=== PATIENT | male | born 1985 | race Caucasian/White ===

== ENCOUNTER 2018-03-10 18:08 | Inpatient (IN) ==
--- NOTE | 2018-03-10 18:24 | Emergency Department Note ---
Disposition Clinical Impression: Acute hepatitis, Elevated liver enzymes Disposition: Admitted As Inpatient Condition: Fair General Adult HPI - General Chief complaint: ED Abdominal Pain Stated complaint: Hep A exposure, multiple concerns Time Seen by Provider: 03/10/18 18:20 Source: patient Limitations: no limitations - History of Present Illness Pain Scale: 8 - Related Data Home Medications Medication Instructions Recorded Confirmed No Known Home Drugs 03/10/18 03/10/18 Allergies Allergy/AdvReac Type Severity Reaction Status Date / Time No Known Allergies Allergy Verified 03/10/18 20:23 Past Medical History - Past Medical History Medical history: Reports: no medical history Psychiatric history: Reports: no psych history - Social History Smoking Status: Current every day smoker Smokeless Tobacco Status: Yes Alcohol use: Reports: heavy Drug use: Reports: cocaine, opiates, methamphetamine, prescription drug abuse Physical Exam - General Limitations: no limitations General appearance: alert Course Vital Signs Temperature 97.6 F 03/10/18 18:13 Pulse Rate 85 03/10/18 18:13 Respiratory Rate 20 03/10/18 18:13 Blood Pressure 125/84 03/10/18 18:13 O2 Sat by Pulse Oximetry 100 03/10/18 18:13 Temperature 98.1 F 03/11/18 14:40 Pulse Rate 74 03/11/18 14:40 Respiratory Rate 16 03/11/18 14:40 Blood Pressure 133/83 03/11/18 14:40 O2 Sat by Pulse Oximetry 99 03/11/18 14:40 Oxygen Delivery Oxygen Delivery Room Air Medical Decision Making - Lab Data Result diagrams: 03/11/18 00:21 03/11/18 00:21 Lab Results 03/10/18 03/10/18 03/10/18 Range/Units 18:34 18:34 18:34 WBC 3.7 L (4.3-11.1) K/mcL RBC 5.19 (4.19-5.50) M/mcL Hgb 16.3 (12.9-16.9) g/dL Hct 45.0 (37.5-50.1) % MCV 86.7 (83.0-100.0) fL MCH 31.4 (28.0-33.3) pg MCHC 36.2 H (31.6-35.5) g/dL RDW 12.6 (11.5-14.5) % Plt Count 125 L (140-400) K/mcL MPV 9.7 (9.4-12.4) fL Immature Gran % 0.0 (0-4) % Seg Neutrophils % 27.3 % Lymphocytes % 58.6 % Monocytes % 10.3 % Eosinophils % 1.6 % Basophils % 2.2 % Neutrophils # 1.0 L (1.6-8.9) K/mcL Lymphocytes # 2.2 (0.6-4.6) K/mcL Monocytes # 0.4 (0.0-1.3) K/mcL Eosinophils # 0.1 (0.0-0.6) K/mcL Basophils # 0.1 (0.0-0.2) K/mcL Reactive Lymphocytes Present A (Not Present) Platelet Estimate Normal (Normal) PT (9.4-12.1) Seconds INR Sodium 135 L (136-145) mEq/L Potassium 3.8 (3.5-5.1) mEq/L Chloride 103 (98-107) mEq/L Carbon Dioxide 27 (23-29) mEq/L BUN 6 (6-20) mg/dL Creatinine 0.86 (0.70-1.30) mg/dL Est GFR ( Amer) > 60 (> 60) Est GFR (Non-Af Amer) > 60 (> 60) BUN/Creatinine Ratio 7 (6-26) Glucose 123 H (70-105) mg/dL Calculated Osmolality 279 L (280-300) Calcium 9.1 (8.6-10.3) mg/dL Total Bilirubin 5.2 H (0.3-1.0) mg/dL Direct Bilirubin (0.0-0.2) mg/dL AST 1172 H (13-39) Units/L ALT > 500 H (7-52) Units/L Alkaline Phosphatase 247 H (34-104) Units/L Serum Total Protein 7.1 (6.4-8.9) g/dL Albumin 4.2 (3.5-5.7) g/dL Globulin 2.9 (2.4-3.5) g/dL Albumin/Globulin Ratio 1.4 (1.1-2.2) Urine Color (Yellow) Urine Clarity (Clear) Urine pH (5.0-8.0) pH Units Ur Specific [place] (1.010-1.025) Urine Protein (Neg-Trace) mg/dL Urine Glucose (UA) (Normal) mg/dL Urine Ketones (Negative) mg/dL Urine Blood (Negative) Urine Nitrite (Negative) Urine Bilirubin (Negative) Urine Urobilinogen (Normal) mg/dL Ur Leukocyte Esterase (Negative) Urine Microscopic RBC (0-3) per hpf Urine Microscopic WBC (0-3) per hpf Ur Squamous Epith Cells (None-Few) per lpf Urine Bacteria (None-Few) per hpf Hyaline Casts (None-Few) per lpf Acetaminophen (10-20) mcg/mL Hepatitis A IgM Ab Reactive H (Nonreactive) Hep Bs Antigen Nonreactive (Nonreactive) Hep B Core IgM Ab Nonreactive (Nonreactive) Hepatitis C Ab Screen Nonreactive (Nonreactive) 03/10/18 03/10/18 03/10/18 Range/Units 18:54 20:19 20:19 WBC (4.3-11.1) K/mcL RBC (4.19-5.50) M/mcL Hgb (12.9-16.9) g/dL Hct (37.5-50.1) % MCV (83.0-100.0) fL MCH (28.0-33.3) pg MCHC (31.6-35.5) g/dL RDW (11.5-14.5) % Plt Count (140-400) K/mcL MPV (9.4-12.4) fL Immature Gran % (0-4) % Seg Neutrophils % % Lymphocytes % % Monocytes % % Eosinophils % % Basophils % % Neutrophils # (1.6-8.9) K/mcL Lymphocytes # (0.6-4.6) K/mcL Monocytes # (0.0-1.3) K/mcL Eosinophils # (0.0-0.6) K/mcL Basophils # (0.0-0.2) K/mcL Reactive Lymphocytes (Not Present) Platelet Estimate (Normal) PT 12.3 H (9.4-12.1) Seconds INR 1.1 Sodium (136-145) mEq/L Potassium (3.5-5.1) mEq/L Chloride (98-107) mEq/L Carbon Dioxide (23-29) mEq/L BUN (6-20) mg/dL Creatinine (0.70-1.30) mg/dL Est GFR ( Amer) (> 60) Est GFR (Non-Af Amer) (> 60) BUN/Creatinine Ratio (6-26) Glucose (70-105) mg/dL Calculated Osmolality (280-300) Calcium (8.6-10.3) mg/dL Total Bilirubin (0.3-1.0) mg/dL Direct Bilirubin 3.9 H (0.0-0.2) mg/dL AST (13-39) Units/L ALT (7-52) Units/L Alkaline Phosphatase (34-104) Units/L Serum Total Protein (6.4-8.9) g/dL Albumin (3.5-5.7) g/dL Globulin (2.4-3.5) g/dL Albumin/Globulin Ratio (1.1-2.2) Urine Color [place] A (Yellow) Urine Clarity Clear (Clear) Urine pH 6.0 (5.0-8.0) pH Units Ur Specific [place] 1.022 (1.010-1.025) Urine Protein 30 H (Neg-Trace) mg/dL Urine Glucose (UA) Normal (Normal) mg/dL Urine Ketones 15 H (Negative) mg/dL Urine Blood Negative (Negative) Urine Nitrite Positive A (Negative) Urine Bilirubin Large H (Negative) Urine Urobilinogen 2.0 H (Normal) mg/dL Ur Leukocyte Esterase Small H (Negative) Urine Microscopic RBC 5-15 H (0-3) per hpf Urine Microscopic WBC 0-3 (0-3) per hpf Ur Squamous Epith Cells None Seen (None-Few) per lpf Urine Bacteria None Seen (None-Few) per hpf Hyaline Casts None Seen (None-Few) per lpf Acetaminophen < 10 L (10-20) mcg/mL Hepatitis A IgM Ab (Nonreactive) Hep Bs Antigen (Nonreactive) Hep B Core IgM Ab (Nonreactive) Hepatitis C Ab Screen (Nonreactive) Attestation Statement - Attestation Attestation: I examined this patient and my medical decision-making was reviewed with the Resident Physician. I agree with the documented findings, disposition and treatment plan as described except to the extent set forth below. [id number] time provided Patient states he was possibly exposed to hepatitis A when he snorted methamphetamine with another person who had a known exposure. He states "I feel like I have a kidney infection or something." "I feel like my body is shutting down." Triage note and vital was reviewed by me. No SIRS criteria. Patient appears in no acute distress on exam
--- NOTE | 2018-03-10 18:27 | Emergency Department Note ---
Disposition Clinical Impression: Acute hepatitis, Elevated liver enzymes Disposition: Admitted As Inpatient Condition: Fair Forms: ED Satisfaction Letter, Work/School Release Time of Disposition: 20:30 General Adult HPI - General Chief complaint: ED Abdominal Pain Stated complaint: Hep A exposure, multiple concerns Time Seen by Provider: 03/10/18 18:20 Source: patient Limitations: no limitations Nursing Notes Reviewed: Yes Vital Signs Reviewed: Yes - History of Present Illness HPI Narrative: 32 y/o male presents with concerns that his "kidneys are shutting down." Pt has a hx of snorting meth, last use was 3-4 days ago. Pt also has a 21 year history of ETOH abuse, last drink 2-3 days ago. Pt reports that he used to snort cocaine and did pills. He started feeling bad on wednesday. He states he has felt run down and hurts all over. He has chills, bilateral low back pain, mild abd pain, he was vomiting on wednesday and is now nauseated. He feels like his " whole body is shutting down." He has been taking a lot of ibuprofen and maybe tylenol, although he can't quantify the amount of pills. He also bought [address] to take for the pain, but they did not help. He has been peeing dark blood all day so he became concerned and came in. He is worried that he has hep A because one of his friends he snorted meth with at some point during the last month had it. He denies fevers, CP, SOB, CARL, dizziness, syncope, vision changes, rashes, numbness or tingling. Pain Scale: 8 - Related Data Home Medications Medication Instructions Recorded Confirmed No Known Home Drugs 03/10/18 03/10/18 Allergies Allergy/AdvReac Type Severity Reaction Status Date / Time No Known Allergies Allergy Verified 03/10/18 20:23 All systems ED: reviewed and negative except as stated. Past Medical History - Past Medical History Attestation: Yes The following information was validated with the patient. Source: patient Medical history: Reports: no medical history Psychiatric history: Reports: no psych history - Social History Smoking Status: Current every day smoker Smokeless Tobacco Status: Yes Alcohol use: Reports: heavy Drug use: Reports: cocaine, opiates, methamphetamine, prescription drug abuse Physical Exam - General Limitations: no limitations General appearance: alert - Head Head exam: atraumatic, normocephalic, normal inspection - Eye Eye exam: Present: PERRL, EOMI, scleral icterus. Absent: nystagmus - ENT ENT exam: normal exam, normal oropharynx, mucous membranes moist - Neck Neck exam: Present: normal inspection, full ROM, trachea midline - Chest Chest inspection: Present: normal inspection, symmetric chest wall rise - Respiratory Respiratory exam: Present: normal lung sounds bilaterally - Cardiovascular Cardiovascular exam: Present: regular rate, normal rhythm, normal heart sounds, +S1, +S2. Absent: systolic murmur, diastolic murmur - Abdominal Exam Abdominal exam: Present: soft, tenderness, guarding (over RUQ), normal bowel sounds. Absent: distention, rebound, rigidity Abdominal tenderness: Present: RUQ, mild - Extremities Exam Extremities exam: Present: normal inspection, full ROM, normal capillary refill. Absent: tenderness, pedal edema - Back Exam Back exam: Present: normal inspection, tenderness (over iliac crests bilaterally ). Absent: CVA tenderness (R), CVA tenderness (L) - Neurological Exam Neurological exam: Present: alert, oriented X3 - Psychiatric Psychiatric exam: Present: normal affect, normal mood - Skin Skin exam: Present: warm, dry, intact, other (mild jaundice) Course Course Narrative: 32 y/o male presents with concerns that his "kidneys are shutting down." Pt has a hx of snorting meth, last use was 3-4 days ago. Pt also has a 21 year history of ETOH abuse, last drink 2-3 days ago. Pt reports that he used to snort cocaine and did pills. He started feeling bad on wednesday. He states he has felt run down and hurts all over. He has chills, bilateral low back pain, mild abd pain, he was vomiting on wednesday and is now nauseated. He feels like his " whole body is shutting down." He has been taking a lot of ibuprofen and maybe tylenol, although he can't quantify the amount of pills. He also bought [address] to take for the pain, but they did not help. He has been peeing dark blood all day so he became concerned and came in. He is worried that he has hep A because one of his friends he snorted meth with at some point during the last month had it. Will get Hepatitis panel, CBC, CMP, UA. Dispo based on results. - Reevaluation(s) Reevaluation #1: Pt resting comfortably, discussed lab results and admission with the pt. He is agreeable. Hep B nonreactive, Hep C and A still pending. Time: 20:25 - Consultations Consultation #1: Case discussed with Dr. Garcia with the Hospitalist Service who has accepted the pt for admission. Direct Billirubin and acetaminophen level ordered. Time: 20:24 Vital Signs Temperature 97.6 F 03/10/18 18:13 Pulse Rate 85 03/10/18 18:13 Respiratory Rate 20 03/10/18 18:13 Blood Pressure 125/84 03/10/18 18:13 O2 Sat by Pulse Oximetry 100 03/10/18 18:13 Temperature 97.6 F 03/10/18 18:13 Pulse Rate 85 03/10/18 18:13 Respiratory Rate 20 03/10/18 18:13 Blood Pressure 125/84 03/10/18 18:13 O2 Sat by Pulse Oximetry 100 03/10/18 18:13 Oxygen Delivery Oxygen Delivery Room Air Medical Decision Making - MDM Narrative Medical decision making narrative: Pt presents with worsening low back pain, fatigue, weakness and red urine. Pt has recent meth and percocet use. He also admits to 21 years if alcohol abuse. On exam pt in no distress, LCTA, RRR, abd is soft with guarding and mild tenderness in RUQ, mild scleral icterus and mild jaundice. No CVA tenderness, but pain over bilateral iliac crests posteriorly. Labwork shows bilrubin and blood in urine, elevated LFTs, alk phos and bilirubin. Will get direct bili and acetaminophen. Pt will be admitted to hospitalist service with acute hepatitis. Hep B nonreactive, Hep C and Hep A panels pending. - Medical Records Medical records reviewed: Yes I reviewed the patient's medical records. - Lab Data Lab results reviewed: Yes I reviewed the patient's lab results. Result diagrams: 03/10/18 18:34 03/10/18 18:34 Lab Results 03/10/18 03/10/18 03/10/18 Range/Units 18:34 18:34 18:34 WBC 3.7 L (4.3-11.1) K/mcL RBC 5.19 (4.19-5.50) M/mcL Hgb 16.3 (12.9-16.9) g/dL Hct 45.0 (37.5-50.1) % MCV 86.7 (83.0-100.0) fL MCH 31.4 (28.0-33.3) pg MCHC 36.2 H (31.6-35.5) g/dL RDW 12.6 (11.5-14.5) % Plt Count 125 L (140-400) K/mcL MPV 9.7 (9.4-12.4) fL Immature Gran % 0.0 (0-4) % Seg Neutrophils % 27.3 % Lymphocytes % 58.6 % Monocytes % 10.3 % Eosinophils % 1.6 % Basophils % 2.2 % Neutrophils # 1.0 L (1.6-8.9) K/mcL Lymphocytes # 2.2 (0.6-4.6) K/mcL Monocytes # 0.4 (0.0-1.3) K/mcL Eosinophils # 0.1 (0.0-0.6) K/mcL Basophils # 0.1 (0.0-0.2) K/mcL Reactive Lymphocytes Present A (Not Present) Platelet Estimate Normal (Normal) Sodium 135 L (136-145) mEq/L Potassium 3.8 (3.5-5.1) mEq/L Chloride 103 (98-107) mEq/L Carbon Dioxide 27 (23-29) mEq/L BUN 6 (6-20) mg/dL Creatinine 0.86 (0.70-1.30) mg/dL Est GFR ( Amer) > 60 (> 60) Est GFR (Non-Af Amer) > 60 (> 60) BUN/Creatinine Ratio 7 (6-26) Glucose 123 H (70-105) mg/dL Calculated Osmolality 279 L (280-300) Calcium 9.1 (8.6-10.3) mg/dL Total Bilirubin 5.2 H (0.3-1.0) mg/dL AST 1172 H (13-39) Units/L ALT > 500 H (7-52) Units/L Alkaline Phosphatase 247 H (34-104) Units/L Serum Total Protein 7.1 (6.4-8.9) g/dL Albumin 4.2 (3.5-5.7) g/dL Globulin 2.9 (2.4-3.5) g/dL Albumin/Globulin Ratio 1.4 (1.1-2.2) Urine Color (Yellow) Urine Clarity (Clear) Urine pH (5.0-8.0) pH Units Ur Specific [place] (1.010-1.025) Urine Protein (Neg-Trace) mg/dL Urine Glucose (UA) (Normal) mg/dL Urine Ketones (Negative) mg/dL Urine Blood (Negative) Urine Nitrite (Negative) Urine Bilirubin (Negative) Urine Urobilinogen (Normal) mg/dL Ur Leukocyte Esterase (Negative) Urine Microscopic RBC (0-3) per hpf Urine Microscopic WBC (0-3) per hpf Ur Squamous Epith Cells (None-Few) per lpf Urine Bacteria (None-Few) per hpf Hyaline Casts (None-Few) per lpf Hep Bs Antigen Nonreactive (Nonreactive) 03/10/18 Range/Units 18:54 WBC (4.3-11.1) K/mcL RBC (4.19-5.50) M/mcL Hgb (12.9-16.9) g/dL Hct (37.5-50.1) % MCV (83.0-100.0) fL MCH (28.0-33.3) pg MCHC (31.6-35.5) g/dL RDW (11.5-14.5) % Plt Count (140-400) K/mcL MPV (9.4-12.4) fL Immature Gran % (0-4) % Seg Neutrophils % % Lymphocytes % % Monocytes % % Eosinophils % % Basophils % % Neutrophils # (1.6-8.9) K/mcL Lymphocytes # (0.6-4.6) K/mcL Monocytes # (0.0-1.3) K/mcL Eosinophils # (0.0-0.6) K/mcL Basophils # (0.0-0.2) K/mcL Reactive Lymphocytes (Not Present) Platelet Estimate (Normal) Sodium (136-145) mEq/L Potassium (3.5-5.1) mEq/L Chloride (98-107) mEq/L Carbon Dioxide (23-29) mEq/L BUN (6-20) mg/dL Creatinine (0.70-1.30) mg/dL Est GFR ( Amer) (> 60) Est GFR (Non-Af Amer) (> 60) BUN/Creatinine Ratio (6-26) Glucose (70-105) mg/dL Calculated Osmolality (280-300) Calcium (8.6-10.3) mg/dL Total Bilirubin (0.3-1.0) mg/dL AST (13-39) Units/L ALT (7-52) Units/L Alkaline Phosphatase (34-104) Units/L Serum Total Protein (6.4-8.9) g/dL Albumin (3.5-5.7) g/dL Globulin (2.4-3.5) g/dL Albumin/Globulin Ratio (1.1-2.2) Urine Color [place] A (Yellow) Urine Clarity Clear (Clear) Urine pH 6.0 (5.0-8.0) pH Units Ur Specific [place] 1.022 (1.010-1.025) Urine Protein 30 H (Neg-Trace) mg/dL Urine Glucose (UA) Normal (Normal) mg/dL Urine Ketones 15 H (Negative) mg/dL Urine Blood Negative (Negative) Urine Nitrite Positive A (Negative) Urine Bilirubin Large H (Negative) Urine Urobilinogen 2.0 H (Normal) mg/dL Ur Leukocyte Esterase Small H (Negative) Urine Microscopic RBC 5-15 H (0-3) per hpf Urine Microscopic WBC 0-3 (0-3) per hpf Ur Squamous Epith Cells None Seen (None-Few) per lpf Urine Bacteria None Seen (None-Few) per hpf Hyaline Casts None Seen (None-Few) per lpf Hep Bs Antigen (Nonreactive)
[2018-03-10 18:46] LABS: Basophils # 0.1 K/mcL (0.0-0.2); Basophils % 2.2 %; Eosinophils # 0.1 K/mcL (0.0-0.6); Eosinophils % 1.6 %; Hemoglobin 16.3 g/dL (12.9-16.9); Lymphocytes # 2.2 K/mcL (0.6-4.6); Lymphocytes % 58.6 %; Mean Corpuscular HGB Conc 36.2 g/dL (31.6-35.5); Mean Corpuscular Hemoglobin 31.4 pg (28.0-33.3); Mean Corpuscular Volume 86.7 fL (83.0-100.0); Mean Platelet Volume 9.7 fL (9.4-12.4); Monocytes # 0.4 K/mcL (0.0-1.3); Monocytes % 10.3 %; Platelet Count 125 K/mcL (140-400); Red Blood Count 5.19 M/mcL (4.19-5.50); Red Cell Distribution Width 12.6 % (11.5-14.5); Segmented Neutrophils % 27.3 %
[2018-03-10 19:08] LABS: Bilirubin,Urine Large (Negative); Blood,Urine Negative (Negative); Clarity,Urine Clear (Clear); Color,Urine Orange (Yellow); Glucose,Urine (UA) Normal (Normal); Ketones,Urine 15 mg/dL (Negative); Leukocyte Esterase,Urine Small (Negative); Nitrite,Urine Positive (Negative); Protein,Urine 30 mg/dL (Neg-Trace); Specific Gravity,Urine 1.022 (1.010-1.025)
[2018-03-10 19:13] LABS: Bacteria,Urine None Seen per hpf (None-Few); Hyaline Casts,Urine None Seen per lpf (None-Few); Squamous Epithelial Cell,Urine None Seen per lpf (None-Few); WBC,Urine 0-3 per hpf (0-3)
[2018-03-10 19:14] LABS: Platelet Estimate Normal (Normal); Reactive Lymphocytes Present (Not Present)
[2018-03-10 19:27] LABS: Hepatitis B Surface Antigen Nonreactive (Nonreactive)
[2018-03-10 20:07] LABS: Alanine Aminotransferase > 500 Units/L (7-52); Albumin 4.2 g/dL (3.5-5.7); Albumin/Globulin Ratio 1.4 (1.1-2.2); Alkaline Phosphatase 247 Units/L (34-104); Aspartate Amino Transferase 1172 Units/L (13-39); BUN/Creatinine Ratio 7 (6-26); Bilirubin,Total 5.2 mg/dL (0.3-1.0); Blood Urea Nitrogen 6 mg/dL (6-20); Calcium 9.1 mg/dL (8.6-10.3); Carbon Dioxide 27 mEq/L (23-29); Chloride 103 mEq/L (98-107); Globulin 2.9 g/dL (2.4-3.5); Glucose 123 mg/dL (70-105); Osmolality,Calculated 279 (280-300); Potassium 3.8 mEq/L (3.5-5.1); Sodium 135 mEq/L (136-145); Total Protein 7.1 g/dL (6.4-8.9); eGFR For Non-African Americans > 60 (> 60)
[2018-03-10 20:34] LABS: INR 1.1; Prothrombin Time 12.3 Seconds (9.4-12.1)
[2018-03-10 20:47] LABS: Acetaminophen < 10 mcg/mL (10-20); Bilirubin,Direct 3.9 mg/dL (0.0-0.2)
[2018-03-10] MEDS ORDERED: Naloxone 0.4 MG/ML INJ IVP PRN (23:35)
[2018-03-11] MEDS ORDERED: traMADol 50 MG TABLET PO PRN (00:12)
[2018-03-11 01:06] LABS: Basophils # 0.1 K/mcL (0.0-0.2); Basophils % 1.4 %; Eosinophils # 0.1 K/mcL (0.0-0.6); Eosinophils % 1.4 %; Hematocrit 44.4 % (37.5-50.1); Hemoglobin 16.2 g/dL (12.9-16.9); Immature Granulocytes % 0.2 % (0-4); Lymphocytes # 2.8 K/mcL (0.6-4.6); Lymphocytes % 62.4 %; Mean Corpuscular HGB Conc 36.5 g/dL (31.6-35.5); Mean Corpuscular Volume 87.6 fL (83.0-100.0); Mean Platelet Volume 10.4 fL (9.4-12.4); Monocytes # 0.5 K/mcL (0.0-1.3); Monocytes % 11.9 %; Platelet Count 122 K/mcL (140-400); Red Blood Count 5.07 M/mcL (4.19-5.50); Red Cell Distribution Width 12.4 % (11.5-14.5); Segmented Neutrophils % 22.7 %
[2018-03-11 01:30] LABS: Alanine Aminotransferase > 500 Units/L (7-52); Albumin 3.8 g/dL (3.5-5.7); Albumin/Globulin Ratio 1.5 (1.1-2.2); Alkaline Phosphatase 221 Units/L (34-104); Aspartate Amino Transferase 944 Units/L (13-39); BUN/Creatinine Ratio 9 (6-26); Bilirubin,Total 5.3 mg/dL (0.3-1.0); Blood Urea Nitrogen 7 mg/dL (6-20); Calcium 8.6 mg/dL (8.6-10.3); Carbon Dioxide 29 mEq/L (23-29); Chloride 102 mEq/L (98-107); Globulin 2.5 g/dL (2.4-3.5); Glucose 91 mg/dL (70-105); Osmolality,Calculated 282 (280-300); Platelet Estimate Slight Decrease (Normal); Potassium 3.8 mEq/L (3.5-5.1); Reactive Lymphocytes Present (Not Present); Sodium 137 mEq/L (136-145); Total Protein 6.3 g/dL (6.4-8.9); eGFR For Non-African Americans > 60 (> 60)
[2018-03-11 02:08] LABS: Hepatitis B Core IgM Nonreactive (Nonreactive); Hepatitis C Virus Antibody Nonreactive (Nonreactive)
[2018-03-11 02:19] LABS: Hepatitis A Antibody IgM Reactive (Nonreactive)
--- NOTE | 2018-03-11 06:48 | Internal Med History&Physical ---
Date of Encounter: 03/10/18 Time of Encounter: 23:00 Internal Medicine - H&P: HPI Chief complaint: Low back pain; jaundice Admitted From: Home Plans for Post Hospital Care: Home History of present illness: Mr. Chapa is a 32 year old male. The patient came to emergency room complaining of low back pain. He was found to have jaundice. His low back pain started about 5 days ago. He has had dark urine for the last few days. This patient has had long-standing history of alcoholism. He used to drink whiskey. Currently, he drinks on average 5 beers per day. He used to snort cocainequit several months ago. He continues with snorting of methamphetamine. He does snort Percocet tablets at times. Otherwise, he does not have any other medical problems. Review of systems: All 14 organ systems were reviewed by me with the patient. Positive and pertinent negative findings are listed above. The rest of organ systems is negative. Physical Exam: Skin: Free of rash and discoloration. Eyes: Sclera is yellow. There is no discharge from eyes. ENMT: Oral/pharyngeal mucosa is normal in appearance. There is no discharge from nose or ears. Respiratory: Normal breath sounds with no crackles and wheezes bilaterally. CV: Heart is regular with no gallop or murmur. GI: Abdomen is flat and soft with no palpable mass or visceromegaly. : There is no tenderness in patient's flanks bilaterally. Neuro exam: He has good strength in upper and lower extremities. He has normal eye movements. Psychiatric: He has normal affect. His thought process is appropriate to the situation. Past Med Surg Social Fam HX - Past Medical History Medical history: no medical history Psychiatric history: no psych history - Past Surgical History Additional surgical history: eye as toddler - Social History Smoking Status: Current every day smoker Packs per day: 0.5 Smokeless Tobacco Status: Yes Alcohol use: heavy Drug use: cocaine, opiates, methamphetamine, prescription drug abuse - Family History Father Age: 63 Family Member Ethnicity: Non- Living Status: Hx Family Cardiac Disorders: No Hx Family Respiratory Disorders: No Hx Family Cancer: No Hx Family Genitourinary Disorders: No Hx Family Endocrine Disorder: Yes Hx Family Neuromuscular Disorders: Yes (patient's father had agent orange) Internal Medicine - H&P: Meds No Known Home Drugs 03/10/18 [History] 3 Allergy/AdvReac Type Severity Reaction Status Date / Time No Known Allergies Allergy Verified 03/10/18 20:23 All Systems PM: A 10-system review of systems was performed and is negative for pertinent findings except as documented above in the HPI. - Constitutional Vitals: Temp Pulse Resp BP Pulse Ox 98.0 F 80 14 113/80 96 03/11/18 04:52 03/11/18 04:52 03/11/18 04:52 03/11/18 04:52 03/11/18 04:52 Internal Med - H&P Results - Labs CBC & Chem 7: 03/11/18 00:21 03/11/18 00:21 Labs: Short CBC 03/11/18 Range/Units 00:21 WBC 4.4 (4.3-11.1) K/mcL Hgb 16.2 (12.9-16.9) g/dL Hct 44.4 (37.5-50.1) % Plt Count 122 L (140-400) K/mcL Neutrophils # 1.0 L (1.6-8.9) K/mcL BMP 03/11/18 00:21 Sodium 137 Potassium 3.8 Chloride 102 Carbon Dioxide 29 BUN 7 Creatinine 0.78 Glucose 91 Calcium 8.6 Liver Function 03/11/18 Range/Units 00:21 Total Bilirubin 5.3 H (0.3-1.0) mg/dL AST 944 H (13-39) Units/L ALT > 500 H (7-52) Units/L Alkaline Phosphatase 221 H (34-104) Units/L Albumin 3.8 (3.5-5.7) g/dL - Assessment and plan (1) Hepatitis A Current Visit: Yes Status: Acute Assessment and plan: His hepatitis A IgM antibody is reactive. We will continue supportive treatment. Will repeat his hepatic panel in the morning. The patient was asked to stop drinking alcohol/using drugs. Qualifiers: Hepatic coma status: without hepatic coma Qualified Code(s): B15.9 - Hepatitis A without hepatic coma (2) Chronic alcoholism Current Visit: Yes Status: Acute Assessment and plan: I asked him to stop using alcohol. This will definitely make his hepatitis A worse. (3) Polysubstance abuse Current Visit: Yes Status: Acute Assessment and plan: I advised him to stop using his drugs. He may look for outpatient drug addiction program. - Time Spent With Patient Total time spent is greater than 50% in coordination of care (as documented) at patient's floor/unit and/or counseling patient: Greater than 35 minutes (40 minutes)
[2018-03-11] MEDS: 0.9 % Sodium Chloride 1,000 ML IVC SCH ×2 (09:26→23:37)
[2018-03-11 09:53] LABS: INR 1.1; Prothrombin Time 12.1 Seconds (9.4-12.1)
--- NOTE | 2018-03-11 10:08 | Gastroenterology Consult Note ---
<Carlene Hou - Last Filed: 03/11/18 10:04> Date of Encounter: 03/11/18 Time of Encounter: 09:00 - Assessment and plan (1) Elevated liver enzymes Current Visit: Yes Status: Acute Assessment and plan: Pt presents with lower back pain, was found to have elevated liver enzymes. Due to a combination of alcoholism and acute hepatitis a infection. US abdomen ordered, will monitor labs. Needs started on thiamine and MVI, supportive care at this time. (2) Hepatitis A Current Visit: Yes Status: Acute Assessment and plan: Advised pt of precautions to prevent spread to household members. Advised is self-limiting and supportive care measures. Qualifiers: Hepatic coma status: without hepatic coma Qualified Code(s): B15.9 - Hepatitis A without hepatic coma (3) Chronic alcoholism Current Visit: Yes Status: Acute Assessment and plan: Advised abstinence, especially in the presence of acute hepatitis a to prevent permanent liver damage. - Time Spent With Patient Total time spent is greater than 50% in coordination of care (as documented) at patient's floor/unit and/or counseling patient: GI History of Present Illness - Data of Consult Patient: new to practice Consult date: 03/11/18 Requesting Physician: Lizet Maria MD - Consult Narrative Reason for consult: hepatitis a/jaundice History of present illness: Mr. Chapa is a 32 year old male who presented with low back pain. He was found to have jaundice. He reports genralized achiness and low back pain starting about 5 days ago. He has had dark urine for the last few days. This reports a 21 year history of alcoholism. He used to drink whiskey. Currently, he drinks on average 5 beers per day. He used to snort cocaine but reports he quit several months ago and continues to snort methamphetamine and Percocet tablets at times. Labs showed a total bilirubin 5.3 AST 944 ALT greater than 500 alkaline phosphatase 221 hepatitis A was positive. He denies any previous hospitalizations for liver disease. Past Med Surg Social Fam HX - Past Medical History Medical history: no medical history Psychiatric history: no psych history - Past Surgical History Additional surgical history: eye as toddler - Social History Smoking Status: Current every day smoker Packs per day: 0.5 Smokeless Tobacco Status: Yes Alcohol use: heavy Drug use: cocaine, opiates, methamphetamine, prescription drug abuse - Family History Father Age: 63 Family Member Ethnicity: Non- Living Status: Hx Family Cardiac Disorders: No Hx Family Respiratory Disorders: No Hx Family Cancer: No Hx Family Genitourinary Disorders: No Hx Family Endocrine Disorder: Yes Hx Family Neuromuscular Disorders: Yes (patient's father had agent orange) Review of Systems: GI: as per [facility]: denies fever, has some chills EYES: yellow discoloration ENT: denies pain with swallowing or difficulty swallowing CARDIO: denies chest pain, palpitations RESP: Shortness of breath with exertion : dark urine NEURO: denies any weakness HEME: Denies any bruising MS: chronic back and joint pain, worse presently in his lower back DERM: denies rash or itching PSYCH: history of anxiety and depression - Constitutional Vitals: Temp Pulse Resp BP Pulse Ox 97.9 F 66 16 115/75 99 03/11/18 06:55 03/11/18 06:55 03/11/18 06:55 03/11/18 06:55 03/11/18 06:55 Exam: CONSTITUTIONAL:~alert, no acute distress.~HEAD:~normocephalic.~EYES:~jaundice.~ NECK:~no obvious swelling.~HEART:~regular rate and rhythm, no murmurs.~LUNGS:~ bilateral good air entry.~ABDOMEN:~non distended, soft, non tender, no masses palpable, no organomegaly.~RECTAL EXAM:~Deferred.~EXTREMITIES:~no clubbing, cyanosis or edema.~SKIN:~jaundice noted.~NEUROLOGIC:~no obvious focal defect.~~~ ~ Results - Labs CBC & Chem 7: 03/11/18 00:21 03/11/18 00:21 Labs: Last Result Calcium 8.6 mg/dL (8.6-10.3) 03/11/18 00:21 Entire Visit Hgb 16.2 g/dL (12.9-16.9) 03/11/18 00:21 Hct 44.4 % (37.5-50.1) 03/11/18 00:21 PT 12.1 Seconds (9.4-12.1) 03/11/18 09:37 Total Bilirubin 5.3 mg/dL (0.3-1.0) H 03/11/18 00:21 AST 944 Units/L (13-39) H 03/11/18 00:21 ALT > 500 Units/L (7-52) H 03/11/18 00:21 Acetaminophen < 10 mcg/mL (10-20) L 03/10/18 20:19 - ABG ABG results: PT/INR, D-dimer PT 12.1 Seconds (9.4-12.1) 03/11/18 09:37 Consult Discharge Plan - Plan Referrals: NONE,PCP [Primary Care Provider] - Ludwig Prasad [Family Provider] - <[place] - Last Filed: 03/11/18 13:08> Date of Encounter: 03/11/18 - Time Spent With Patient Total time spent is greater than 50% in coordination of care (as documented) at patient's floor/unit and/or counseling patient: GI History of Present Illness - Data of Consult Requesting Physician: Lizet Maria MD - Consult Narrative History of present illness: Mr. Chapa is a 32 year old male - Constitutional Vitals: Temp Pulse Resp BP Pulse Ox 97.9 F 73 16 113/74 99 03/11/18 10:44 03/11/18 10:44 03/11/18 10:44 03/11/18 10:44 03/11/18 10:44 Results - Labs CBC & Chem 7: 18 00:21 03/11/18 00:21 Labs: Last Result Calcium 8.6 mg/dL (8.6-10.3) 03/11/18 00:21 Entire Visit Hgb 16.2 g/dL (12.9-16.9) 03/11/18 00:21 Hct 44.4 % (37.5-50.1) 03/11/18 00:21 PT 12.1 Seconds (9.4-12.1) 03/11/18 09:37 Total Bilirubin 5.3 mg/dL (0.3-1.0) H 18 00:21 AST 944 Units/L (13-39) H 18 00:21 ALT > 500 Units/L (7-52) H 03/11/18 00:21 Acetaminophen < 10 mcg/mL (10-20) L 03/10/18 20:19 - ABG ABG results: PT/INR, D-dimer PT 12.1 Seconds (9.4-12.1) 03/11/18 09:37 - Impressions Impressions Abdomen Ultrasound 03/11/18 11:00 IMPRESSION: Liver appears mildly coarse with echogenic portal triads of finding is nonspecific but can be seen in setting of hepatitis. D/ / Ashok Box MD / Ashok Box MD Interpreting Provider: Ashok Box MD - Attending Attestation I have personally performed a face to face evaluation on this patient. I have reviewed and agree with the care plan. History and Exam by me shows: PT seen. On examination abdomen is benign. Assessment: Abnormal LFTs due to combination of alcoholic hepatitis/acute hepatitis A Recommendation: Symptomatic treatment/supportive care
[2018-03-11] MEDS: Thiamine (B-1) 100 MG TABLET PO SCH (12:26)
[2018-03-11] MEDS: Multivit/Ca/Min/Fe/FA 1 TAB TABLET PO SCH (12:27)
[2018-03-11] MEDS ORDERED: Folic Acid 1 MG in D5% in Water 50 ML IVPB STA (15:03)
--- NOTE | 2018-03-11 16:06 | Internal Med Progress Note ---
Hospitalist Progress Note - Encounter Date of Encounter: 03/11/18 Time of Encounter: 07:45 - Subjective Interval History: he reports that his low back pain has gotten better. tolerated food yesterday denies N/V/D. reports that his skin is not as yellow as it was before. has no pain. denies RUQ abdominal pain, drank alcohol 3 days ago ( multiple beers) but stopped because of RUQ pain. he denies fever, chills, chest pain, SOB, palpitations, abdominal trauma. patient has had long-standing history of alcoholism. He used to drink whiskey. Currently, he drinks on average 5 beers per day - Exam Vitals: Temp Pulse Resp BP Pulse Ox 98.1 F 74 16 133/83 99 03/11/18 14:40 03/11/18 14:40 03/11/18 14:40 03/11/18 14:40 03/11/18 14:40 Exam: General: Patient is alert, oriented, no acute distress, Head: atraumatic, normocephalic, Eye: normal appearance, PERRL, no scleral icterus, no conjunctival injection ENT: mucous membranes moist, normal external ear exam Neck: normal inspection, trachea midline, full ROM, no carotid bruits Chest: normal inspection, symmetric chest rise Respiratory: Good respiratory effort. Bilateral breath sounds are clear without wheezing, crackles, or rhonchi. Cardiovascular: Regular rate and rhythm. s1 and s2 No clicks, rubs, gallops, or murmors. Abdomen: Bowel sounds present normoactive x-4 quadrants. Abdomen is soft, nondistended. Epigastric tenderness. No guarding or rebound. No organomegaly noted, musculoskeletal: Spontaneously moving all extremities. no edema, no calf tenderness Skin: warm, dry, intact. Neuro: Alert and oriented x4. Sensation light touch intact. Cranial nerves 2- 12 is intact. Not aphasic, gait is steady, rapid hand movements intact, finger- to-nose intact, Psych: Patient's affect is normal - Assessment and Plan (1) Acute hepatitis Current Visit: Yes Status: Acute Assessment and Plan: most likely secondary to acute hepatitis and combination of ETOH use. was counseled on alcohol abstinence hep A management and counseling as below GI on board will continue clear liquid diet UTox avoid hepatotoxic drugs tylenol level is <10 will monitor liver enzymes adn coags (2) Chronic alcoholism Current Visit: Yes Status: Acute Assessment and Plan: was counseled thiamine nad folic acid IVP [facility] protocol activated (3) Elevated liver enzymes Current Visit: Yes Status: Acute Assessment and Plan: most likely secondary to acute hepatitis and combination of ETOH use. was counseled on alcohol abstinence hep A management and counseling as below (4) Hepatitis A Current Visit: Yes Status: Acute Assessment and Plan: acute hepatitis A GI on board will follow recommendations Advised pt of precautions to prevent spread to household members. (5) UTI (urinary tract infection) Current Visit: Yes Status: Acute Assessment and Plan: will start him on zosyn IV CT A/P to rule out pyelonephritis - has CVA tenderness (6) Polysubstance abuse Current Visit: Yes Status: Acute Assessment and Plan: was counseled on abstinence (7) Smoker Current Visit: Yes Status: Acute Assessment and Plan: was counseled on smoking cessation DVT Prophylaxis: heparin Sc - Time Spent with Patient Total time spent is greater than 50% in coordination of care (as documented) at patient's floor/unit and/or counseling patient: Plan of Care Discussed with: patient Internal Medicine: Result - Labs CBC & Chem 7: 03/11/18 00:21 03/11/18 00:21 Labs: Short CBC 03/11/18 Range/Units 00:21 WBC 4.4 (4.3-11.1) K/mcL Hgb 16.2 (12.9-16.9) g/dL Hct 44.4 (37.5-50.1) % Plt Count 122 L (140-400) K/mcL Neutrophils # 1.0 L (1.6-8.9) K/mcL BMP 03/11/18 00:21 Sodium 137 Potassium 3.8 Chloride 102 Carbon Dioxide 29 BUN 7 Creatinine 0.78 Glucose 91 Calcium 8.6 Liver Function 03/11/18 Range/Units 00:21 Total Bilirubin 5.3 H (0.3-1.0) mg/dL AST 944 H (13-39) Units/L ALT > 500 H (7-52) Units/L Alkaline Phosphatase 221 H (34-104) Units/L Albumin 3.8 (3.5-5.7) g/dL - ABG Interpretation ABG results: PT/INR, D-dimer PT 12.1 Seconds (9.4-12.1) 03/11/18 09:37 - Impressions Impressions Abdomen Ultrasound 03/11/18 11:00 IMPRESSION: Liver appears mildly coarse with echogenic portal triads of finding is nonspecific but can be seen in setting of hepatitis. D/ / Ashok Box MD / Ashok Box MD Interpreting Provider: Ashok Box MD Consult Discharge Plan - Plan Referrals: NONE,PCP [Primary Care Provider] - Baljinder PrasadConversio [Family Provider] - (4) Hepatitis A Qualifiers: Hepatic coma status: without hepatic coma Qualified Code(s): B15.9 - Hepatitis A without hepatic coma
[2018-03-11] MEDS ORDERED: *HR* LORazepam 2 MG/ML VIAL IVP PRN ×3 (16:15)
[2018-03-11 17:32] LABS: Amylase 16 Units/L (29-103); Lipase 12 Units/L (11-82)
[2018-03-11] MEDS ORDERED: Ketorolac 15 MG/ML VIAL IVP ONE (17:33)
[2018-03-11] MEDS ORDERED: Ketorolac 15 MG/ML VIAL IVP PRN (18:26)
[2018-03-11 23:13] LABS: Amphetamine Screen,Urine Positive ng/mL (Cutoff=1000); Barbiturate Screen,Urine Negative ng/mL (Cutoff=200); Benzodiazepines Screen,Urine Negative ng/mL (Cutoff=200); Cannabinoid Screen,Urine Negative ng/mL (Cutoff = 50); Cocaine Screen,Urine Negative ng/mL (Cutoff= 300); Opiate Screen,Urine Negative ng/mL (Cutoff=300); Phencyclidine Screen,Urine Negative ng/mL (Cutoff=25)
[2018-03-11] MEDS: Piperacillin/Tazobactam 3.375 GM in 0.9 % Sodium Chloride Mini Bag 100 ML IVPB SCH (23:37)
[2018-03-12 04:15] LABS: Eosinophils # 0.1 K/mcL (0.0-0.6); Eosinophils % 2.9 %; Hematocrit 39.2 % (37.5-50.1); Hemoglobin 14.1 g/dL (12.9-16.9); Immature Granulocytes % 0.3 % (0-4); Lymphocytes # 2.2 K/mcL (0.6-4.6); Lymphocytes % 58.4 %; Mean Corpuscular Hemoglobin 31.1 pg (28.0-33.3); Mean Corpuscular Volume 86.5 fL (83.0-100.0); Mean Platelet Volume 10.4 fL (9.4-12.4); Monocytes # 0.4 K/mcL (0.0-1.3); Monocytes % 10.2 %; Platelet Count 124 K/mcL (140-400); Red Blood Count 4.53 M/mcL (4.19-5.50); Red Cell Distribution Width 12.5 % (11.5-14.5); Segmented Neutrophils % 27.2 %
[2018-03-12 04:20] LABS: INR 1.1; Prothrombin Time 12.3 Seconds (9.4-12.1)
[2018-03-12 04:34] LABS: Alanine Aminotransferase > 500 Units/L (7-52); Albumin 3.2 g/dL (3.5-5.7); Albumin/Globulin Ratio 1.2 (1.1-2.2); Alkaline Phosphatase 199 Units/L (34-104); Aspartate Amino Transferase 498 Units/L (13-39); BUN/Creatinine Ratio 9 (6-26); Bilirubin,Total 4.8 mg/dL (0.3-1.0); Blood Urea Nitrogen 6 mg/dL (6-20); Calcium 8.2 mg/dL (8.6-10.3); Carbon Dioxide 25 mEq/L (23-29); Chloride 107 mEq/L (98-107); Globulin 2.7 g/dL (2.4-3.5); Glucose 123 mg/dL (70-105); Osmolality,Calculated 285 (280-300); Potassium 3.7 mEq/L (3.5-5.1); Sodium 138 mEq/L (136-145); Total Protein 5.9 g/dL (6.4-8.9); eGFR For Non-African Americans > 60 (> 60)
[2018-03-12 04:38] LABS: Platelet Estimate Normal (Normal); Reactive Lymphocytes Present (Not Present)
[2018-03-12 06:44] VITALS: BP 123/81
[2018-03-12] MEDS: Thiamine (B-1) 100 MG TABLET PO SCH (08:43)
[2018-03-12] MEDS: Multivit/Ca/Min/Fe/FA 1 TAB TABLET PO SCH (08:43)
[2018-03-12] MEDS: Piperacillin/Tazobactam 3.375 GM in 0.9 % Sodium Chloride Mini Bag 100 ML IVPB SCH (08:44)
[2018-03-12] MEDS: 0.9 % Sodium Chloride 1,000 ML IVC SCH (09:59)
--- NOTE | 2018-03-12 09:59 | Discharge Summary ---
- NOTES TO OUTPATIENT PROVIDER Notes to Outpatient Provider: follow liver enzymes. follow up with Ucx. follow up with gonorrhea and chlamydia Ur DNA. alcohol absitence Orders not resulted at time of discharge: Pending orders 03/11/18 16:15 Culture,Urine [RM] Stat Date of Encounter: 03/12/18 Time of Encounter: 09:55 - Discharge Diagnosis (1) Acute hepatitis Priority: Primary Status: Acute (2) Chronic alcoholism Priority: Secondary Status: Acute (3) Elevated liver enzymes Priority: Secondary Status: Acute (4) Hepatitis A Priority: Secondary Status: Acute Qualifiers: Hepatic coma status: without hepatic coma Qualified Code(s): B15.9 - Hepatitis A without hepatic coma (5) UTI (urinary tract infection) Priority: Secondary Status: Acute Qualifiers: Urinary tract infection type: acute cystitis Hematuria presence: with hematuria Qualified Code(s): N30.01 - Acute cystitis with hematuria (6) Polysubstance abuse Priority: Secondary Status: Acute (7) Smoker Priority: Secondary Status: Acute (8) Duodenitis Priority: Secondary Status: Acute (9) Cystitis Priority: Secondary Status: Acute Hospital course: Mr. Chapa is a 32 year old male who presented with low back pain. He was found to have jaundice. He reports genralized achiness and low back pain starting about 5 days ago. He has had dark urine for the last few days. This reports a 21 year history of alcoholism. He used to drink whiskey. Currently, he drinks on average 5 beers per day. He used to snort cocaine but reports he quit several months ago and continues to snort methamphetamine and Percocet tablets at times. Labs showed a total bilirubin 5.3 AST 944 ALT greater than 500 alkaline phosphatase 221 hepatitis A was positive. He denies any previous hospitalizations for liver disease. US abdomen was performed results below Gi was consulted and recommendations followed. CT abdomen and pelvis done to rule out pyelonephritis as UA was positive ( asymptomatic other than lower back pain) - denies sexually transmitted diseases and discharge. urine for gonorrhea and chlamydia , Ucx ordered was counseled on alcohol abstinence, was counseled on smoking cessation hep A management and counseling done by myself and GI. Advised pt of precautions to prevent spread to household members. he would like to go home and follow up results as OP. he was told to follow up the results with PCP he was told to avoid tylenol adn NSAIDs close follow up with GI was advised. RUQ US: Liver appears mildly coarse with echogenic portal triads of finding is nonspecific but can be seen in setting of hepatitis. CT A/P IMPRESSION: 1. Mild inflammation surrounding the 2nd portion of the duodenum with mild pericholecystic fluid. The differential diagnosis includes acute cholecystitis or duodenitis rather than hepatitis or pancreatitis. Discharge discussed with: patient, nurse, art consultant - Time Spent with Patient Total time spent providing and/or coordinating discharge services: Less than 30 minutes (25) - Discharge Medications Prescriptions: Ciprofloxacin [Cipro] 500 mg PO BID 7 Days #14 tablet Multivit/Ca/Min/Fe/FA [Thera M Plus] 1 tab PO DAILY #30 tablet Omeprazole [PriLOSEC] 40 mg PO DAILY@0630 30 Days #30 capsule. Thiamine (B-1) [Vitamin B-1] 100 mg PO DAILY #30 tablet Home Medications: Ciprofloxacin [Cipro] 500 mg PO BID 7 Days #14 tablet 03/12/18 [Rx] Multivit/Ca/Min/Fe/FA [Thera M Plus] 1 tab PO DAILY #30 tablet 03/12/18 [Rx] Omeprazole [PriLOSEC] 40 mg PO DAILY@0630 30 Days #30 capsule. 03/12/18 [Rx] Thiamine (B-1) [Vitamin B-1] 100 mg PO DAILY #30 tablet 03/12/18 [Rx] Allergies/Adverse Reactions: 3 Allergy/AdvReac Type Severity Reaction Status Date / Time No Known Allergies Allergy Verified 03/10/18 20:23 Date of admission: 03/10/18 23:35 Primary care physician: PCP NONE Consults: 03/11/18 07:21 Consult to Gastroenterology [CONS] Routine Consulting Provider: Gastroenterology Sarah Reason for Consult: acute alcoholic hepatitis Call Completed: No - Constitutional Vitals: Temp Pulse Resp BP Pulse Ox 98.4 F 62 14 123/81 99 03/12/18 06:42 03/12/18 06:42 03/12/18 06:42 03/12/18 06:42 03/12/18 06:42 Exam: General: Patient is alert, oriented, no acute distress, Head: atraumatic, normocephalic, Eye: normal appearance, PERRL, no scleral icterus, no conjunctival injection ENT: mucous membranes moist, normal external ear exam Neck: normal inspection, trachea midline, full ROM, no carotid bruits Chest: normal inspection, symmetric chest rise Respiratory: Good respiratory effort. Bilateral breath sounds are clear without wheezing, crackles, or rhonchi. Cardiovascular: Regular rate and rhythm. s1 and s2 No clicks, rubs, gallops, or murmors. Abdomen: Bowel sounds present normoactive x-4 quadrants. Abdomen is soft, nondistended. Epigastric tenderness. No guarding or rebound. No organomegaly noted, musculoskeletal: Spontaneously moving all extremities. no edema, no calf tenderness Skin: warm, dry, intact. Neuro: Alert and oriented x4. Sensation light touch intact. Cranial nerves 2- 12 is intact. Not aphasic, gait is steady, rapid hand movements intact, finger- to-nose intact, Psych: Patient's affect is normal - Patient Status Disposition: Home, Self-Care Condition: Fair Overall status at discharge: patient is progressing back to baseline - Discharge Instructions Follow Up With: NONE,PCP [Primary Care Provider] - Ludwig Prasad [Family Provider] - Niall Zayas DO [Partnered Physician] - - Diet and Activity Activity: increase activity as tolerated Diet: advance to your usual diet
[2018-03-12] MEDS ORDERED: Azithromycin 250 MG TABLET PO ONE (10:27)
[2018-03-12] MEDS ORDERED: cefTRIAXone 250 MG VIAL IM ONE (10:27)
[2018-03-12 12:34] LABS: Chlamydia Trachomatis DNA Ur NOT DETECTED (Not Detect)
== END 2018-03-12 11:36 | disposition home or self-care (01) ==
LOC: EMEROO 18:08 → 3ANU 18:08 → SUATTDRO 23:35
PROVIDERS: ADMIT Internal Medicine; ATTEND Internal Medicine